=== PATIENT | female | born 1930 | race Caucasian/White ===

== ENCOUNTER 2019-10-08 20:48 | Emergency (ER) | payer MEDICARE, OTHER ==
[~2019-10-08] VITALS: Ht 157 cm; Wt 95.0 kg
--- OUTSIDE RECORDS SUMMARY | 2019-10-08 20:56 | XMS REPORT | Continuity of Care Document ---
Author Organization Unknown Address Unknown Phone Unavailable Allergies There is no data. Medications There is no data. Problems There is no data. Procedures There is no data. Results There is no data. Encounters ACCT No. Visit Date/Time Discharge Status Pt. Type Provider Facility Loc./Unit Complaint [id number] 01/07/2019 17:00:00 01/07/2019 23:59: 59 [facility]
[2019-10-08 22:01] LABS: BASOPHILS % (AUTO) 1 % (0-10); EOSINOPHILS # (AUTO) 0.2 10^3/uL (0.0-0.3); EOSINOPHILS % (AUTO) 4 % (0-10); HEMATOCRIT 35 % (35-52); LYMPHOCYTES # (AUTO) 1.1 X 10^3 (1.0-4.0); LYMPHOCYTES % (AUTO) 18 % (12-44); MEAN CORPUSCULAR HEMOGLOBIN 27 PG (25-34); MEAN CORPUSCULAR HGB CONC 31 G/DL (32-36); MEAN CORPUSCULAR VOLUME 88 FL (80-99); MEAN PLATELET VOLUME 9.5 FL (7.4-10.4); MONOCYTES # (AUTO) 0.7 X 10^3 (0.0-1.0); MONOCYTES % (AUTO) 11 % (0-12); NEUTROPHILS # (AUTO) 4.2 X 10^3 (1.8-7.8); NEUTROPHILS % (AUTO) 67 % (42-75); PLATELET COUNT 173 10^3/uL (130-400); RED CELL DISTRIBUTION WIDTH 15.6 % (10.0-14.5); WHITE BLOOD COUNT 6.2 10^3/uL (4.3-11.0)
[2019-10-08 22:05] LABS: BILIRUBIN,URINE NEGATIVE (NEGATIVE); CLARITY,URINE CLEAR; COLOR,URINE YELLOW; GLUCOSE, URINE (UA) NEGATIVE (NEGATIVE); KETONES,URINE NEGATIVE (NEGATIVE); LEUKOCYTE ESTERASE ,URINE NEGATIVE (NEGATIVE); NITRITE,URINE NEGATIVE (NEGATIVE); PH,URINE 5.5 (5-9); PROTEIN,URINE NEGATIVE (NEGATIVE)
--- NOTE | 2019-10-08 22:05 | ED EENT ---
History of Present Illness General Chief Complaint: Oral/Throat Problems Stated Complaint: FEVER,CHILLS,SOA,SORE THROAT Source: patient Exam Limitations: no limitations History of Present Illness Date Seen by Provider: October 08, 2019 Time Seen by Provider: 21:40 Initial Comments To ER with sore throat, painful swallowing, worsening of chronic shortness of breath, chills for about 3 days. Just arrived here from [place], troubles with her daughter who is a warehouse technician that works part-time traveling. Timing/Duration: abrupt Severity: moderate Location: throat Associated Symptoms: No cough; poor fluid intake, poor solids intake Allergies and Home Medications Allergies Coded Allergies: No Known Drug Allergies (Unverified , 10/08/19) Patient Home Medication List Home Medication List Reviewed: Yes Review of Systems Review of Systems Constitutional: see HPI, chills Eyes: No Symptoms Reported Ears: No Symptoms Reported Nose: no symptoms reported Mouth: no symptoms reported Throat: see HPI, pain Respiratory: see HPI, cough Cardiovascular: no symptoms reported Musculoskeletal: no symptoms reported Skin: no symptoms reported Neurological: No Symptoms Reported Hematologic/Lymphatic: No Symptoms Reported Immunological/Allergic: no symptoms reported Past Cxzmbyq-Ekzrqd-Fkidsz Hx Patient Social History Recent Foreign Travel: No Contact w/Someone Who Travel: No Physical Exam Height, Weight, BMI Height: '" Weight: lbs. oz. kg; BMI Method: General Appearance: WD/WN, no apparent distress Eyes: bilateral eye normal inspection, bilateral eye PERRL, bilateral eye EOMI Ears: bilateral ear auricle normal, bilateral ear canal normal, bilateral ear TM normal Mouth/Throat: normal mouth inspection, other (patient is unable to open her mouth sufficiently to evaluate the pharynx. She states "I don't have a hinge on the left side".) Neck: non-tender, full range of motion Respiratory: no respiratory distress, no accessory muscle use Gastrointestinal: normal bowel sounds, non tender Neurologic/Psychiatric: alert, normal mood/affect, oriented x 3 Skin: normal color, warm/dry Progress/Results/Core Measures Results/Orders Lab Results Laboratory Tests Test 10/08/19 19:25 10/08/19 19:26 10/08/19 21:40 Range/Units White Blood Count 6.2 4.3-11.0 10^3/uL Red Blood Count 4.01 L 4.35-5.85 10^6/uL Hemoglobin 11.0 L 11.5-16.0 G/DL Hematocrit 35 35-52 % Mean Corpuscular Volume 88 80-99 FL Mean Corpuscular Hemoglobin 27 25-34 PG Mean Corpuscular Hemoglobin Concent 31 L 32-36 G/DL Red Cell Distribution Width 15.6 H 10.0-14.5 % Platelet Count 173 130-400 10^3/uL Mean Platelet Volume 9.5 7.4-10.4 FL Neutrophils (%) (Auto) 67 42-75 % Lymphocytes (%) (Auto) 18 12-44 % Monocytes (%) (Auto) 11 0-12 % Eosinophils (%) (Auto) 4 0-10 % Basophils (%) (Auto) 1 0-10 % Neutrophils # (Auto) 4.2 1.8-7.8 X 10^3 Lymphocytes # (Auto) 1.1 1.0-4.0 X 10^3 Monocytes # (Auto) 0.7 0.0-1.0 X 10^3 Eosinophils # (Auto) 0.2 0.0-0.3 10^3/uL Basophils # (Auto) 0.0 0.0-0.1 10^3/uL Prothrombin Time 12.3 12.2-14.7 SEC INR Comment 0.9 0.8-1.4 D-Dimer 1.63 H 0.00-0.49 UG/ML Sodium Level 139 135-145 MMOL/L Potassium Level 4.1 3.6-5.0 MMOL/L Chloride Level 105 98-107 MMOL/L Carbon Dioxide Level 23 21-32 MMOL/L Anion Gap 11 5-14 MMOL/L Blood Urea Nitrogen 19 H 7-18 MG/DL Creatinine 1.15 0.60-1.30 MG/DL Estimat Glomerular Filtration Rate 45 BUN/Creatinine Ratio 17 Glucose Level 157 H 70-105 MG/DL Calcium Level 9.1 8.5-10.1 MG/DL Corrected Calcium 9.3 8.5-10.1 MG/DL Total Bilirubin 1.2 H 0.1-1.0 MG/DL Aspartate Amino Transf (AST/SGOT) 18 5-34 U/L Alanine Aminotransferase (ALT/SGPT) 16 0-55 U/L Alkaline Phosphatase 121 40-136 U/L C-Reactive Protein High Sensitivity 0.38 0.00-0.50 MG/DL B-Type Natriuretic Peptide 141.7 H <100.0 PG/ML Total Protein 6.4 6.4-8.2 GM/DL Albumin 3.8 3.2-4.5 GM/DL Procalcitonin 0.03 <0.10 NG/ML Group A Streptococcus Screen NEGATIVE NEGATIVE Urine Color YELLOW Urine Clarity CLEAR Urine pH 5.5 5-9 Urine Specific [place] 1.020 1.016-1.022 Urine Protein NEGATIVE NEGATIVE Urine Glucose (UA) NEGATIVE NEGATIVE Urine Ketones NEGATIVE NEGATIVE Urine Nitrite NEGATIVE NEGATIVE Urine Bilirubin NEGATIVE NEGATIVE Urine Urobilinogen 0.2 < = 1.0 MG/DL Urine Leukocyte Esterase NEGATIVE NEGATIVE Urine RBC (Auto) NEGATIVE NEGATIVE Urine RBC NONE /HPF Urine WBC RARE /HPF Urine Squamous Epithelial Cells RARE /HPF Urine Crystals NONE /LPF Urine Bacteria TRACE /HPF Urine Casts NONE /LPF Urine Mucus SMALL H /LPF Urine Culture Indicated NO Micro Results Microbiology 10/08/19 Influenza Types A,B Antigen (ARIANNE) - Final, Complete My Orders Orders - PAYTON MIRZA PRODUCT SAFETY SPECIALIST Cbc With Automated Diff (10/08/19 21:00) Comprehensive Metabolic Panel (10/08/19 21:00) BNP (10/08/19 21:00) Procalcitonin (Pct) (10/08/19 21:00) Protime With Inr (10/08/19 21:00) Chest 1 View, Ap/Pa Only (10/08/19 21:00) Influenza A And B Antigens (10/08/19 21:00) Coronavirus Sars-Cov-2 So 2018 (10/08/19 21:00) Hs C Reactive Protein (10/08/19 21:00) Fibrin Degradation Products (10/08/19 21:00) Ua Culture If Indicated (10/08/19 21:08) Rapid Strep A Screen (10/08/19 22:05) Ct Angio Chest W (10/08/19 22:19) Ns Iv 500 Ml (Sodium Chloride 0.9%) (10/08/19 22:30) Amoxicillin Capsule (Polymox Capsule) (10/08/19 22:41) Departure Communication (Admissions) --I discussed with her the potential worsening of kidney dysfunction with the IV contrast for a CT angiogram. The purpose of this would be to evaluate for pulmonary embolism. She states that she doesn't have chest pain. I advised her that she did complain of shortness of breath, she replies "oh yeah but I always have that". She would like to just get an x-ray and did not have the CT angiog benita done. She agrees to sign a refusal of services form understanding that I am unable to evaluate the presence or absence of pulmonary embolism. Impression Primary Impression: Pharyngitis Qualified Codes: J02.9 - Acute pharyngitis, unspecified Disposition: HOME, SELF-CARE Condition: Stable Departure-Patient Inst. Decision time for Depature: 22:38 Referrals: NO,LOCAL PHYSICIAN (PCP/Family) Primary Care Physician Patient Instructions: Sore Throat, Adult (DC) Add. Discharge Instructions: 1. The coronavirus swab should be resulted tomorrow afternoon or evening. Take the antibiotics and steroids as directed. Is Scripts Prednisone (Prednisone) 20 Mg Tab 40 MG PO DAILY, #6 TAB 0 Refills Prov: PAYTON MIRZA APRN 10/08/19 Amoxicillin (Amoxicillin) 500 Mg Capsule 500 MG PO TID, #21 CAP 0 Refills Prov: PAYTON MIRZA APRN 10/08/19 PAYTON MIRZA APRN October 08, 2019 22:05
[2019-10-08 22:09] LABS: ALBUMIN 3.8 GM/DL (3.2-4.5); POTASSIUM 4.1 MMOL/L (3.6-5.0)
[2019-10-08 22:10] LABS: CALCIUM 9.1 MG/DL (8.5-10.1)
[2019-10-08 22:11] LABS: TOTAL PROTEIN 6.4 GM/DL (6.4-8.2)
[2019-10-08 22:12] LABS: BACTERIA,URINE TRACE /HPF; SQUAMOUS EPITHELIAL CELL,UR RARE /HPF; WBC,URINE RARE /HPF
[2019-10-08 22:13] LABS: BILIRUBIN,TOTAL 1.2 MG/DL (0.1-1.0); FIBRIN DEGRADATION PRODUCTS 1.63 UG/ML (0.00-0.49); INR 0.9 (0.8-1.4); PROTHROMBIN TIME PATIENT 12.3 SEC (12.2-14.7)
[2019-10-08 22:15] LABS: CREATININE SERUM 1.15 MG/DL (0.60-1.30)
[2019-10-08] MEDS ORDERED: NS IV 500 ML 500 ML IV SCH (22:30)
--- NOTE | 2019-10-08 22:38 | NUR ---
PT REFUSED CT SCAN OF CHEST WITH CONTRAST AND REFUSAL OF TREATMENT FORM SIGNED.
[2019-10-08] MEDS ORDERED: AMOXICILLIN 500 MG (POLYMOX) CAP PO STA (22:41)
[2019-10-08] MEDS ORDERED: AMOX500C2 PO (22:44)
[2019-10-08] MEDS ORDERED: PRD20T PO (22:44)
--- NOTE | 2019-10-08 22:56 | NUR ---
[id number] SWAB COLLECTED BY Willa MIRZA APRN AND TAKEN TO LAB WITH COMPLETED KDHE FORM. KDHE FORM FRONT AND BACK FAXED TO [facility], ER NURSE CERTIFIED NURSE AIDE AND ALEX GIBBONS, INFECTION CONTROL. 2255- KDHE FORM FRONT AND BACK FAXED TO [facility].
[2019-10-08 23:10] VITALS: BP 150/83
--- NOTE | 2019-10-09 07:24 | Diagnostic Imaging Report ---
Indication: Dyspnea. Comparison: None. Discussion: Single portable upright view of the chest was obtained. Mild cardiomegaly is noted. Left-sided pacemaker is present. No pleural fluid or pneumothorax. Advanced degenerative disease noted within the shoulders. Mild alveolar infiltrates are present bilaterally, left greater than right, which is nonspecific and could be seen with atelectasis, pneumonia, or edema. No central venous congestion identified. Impression: 1. Mild nonspecific alveolar infiltrates. 2. Mild cardiomegaly. Dictated by: Dictated on workstation # [id number]
== END 2019-10-08 23:10 | disposition home or self-care (01) ==
LOC: ER 20:51
DX: J02.9 Acute pharyngitis, unspecified (principal)
CPT/HCPCS: 36415; 71045; 80053; 81000; 83880; 84145; 85025; 85379; 85610; 86141; 87430; 87635; 87804

== ENCOUNTER 2021-03-10 11:45 | Emergency (ER) | payer MEDICARE, OTHER ==
[~2021-03-10] VITALS: Ht 157 cm; Wt 90.7 kg
[~2021-03-10 11:45] MED LIST: AMOX500C2 PO; PRD20T PO
--- NOTE | 2021-03-10 13:01 | ED GI ---
General Chief Complaint: Abdominal/GI Problems Stated Complaint: CONSTIPATION Nursing Triage Note: Pt brought to ED by daughter for constipation x's 3 days. Per daughter pt has IBS and this happens often. Three fleet enemas have been attempted at home with minimal progress. Pt brought to FT 3 in . Source of Information: Patient Exam Limitations: No Limitations History of Present Illness Date Seen by Provider: Mar 10, 2021 Time Seen by Provider: 12:35 Initial Comments Patient presents ER by private conveyance with her daughter and chief complaint she is having obstipation passing only a few rabbit pellets for the past 3 days. She has a history of irritable bowel syndrome. She used 3 enemas today and took a single dose of MiraLAX. She is not on a daily bowel regimen. She has had 14 surgeries including appendicitis, tubes tied, D&Cs, ovarian resection, hysterectomy, pacemaker. She had a colonoscopy in 2008 demonstrating 4 polyps at that time and no repeat colonoscopy since then. Is not noticing any blood in the stool or black tarry stool. He is having a generalized abdominal discomfort in her umbilical region and pressure at the rectum. She says she has significant hemorrhoids. Allergies and Home Medications Allergies Coded Allergies: procaine (Verified Allergy, Unknown, 03/10/21) sulfamethoxazole (Verified Allergy, Unknown, 03/10/21) trimethoprim (Verified Allergy, Unknown, 03/10/21) Patient Home Medication List Home Medication List Reviewed: Yes Amoxicillin (Amoxicillin) 500 Mg Capsule, 500 MG PO TID Prescribed by: PAYTON MIRZA on 10/08/192243 Prednisone (Prednisone) 20 Mg Tab, 40 MG PO DAILY Prescribed by: PAYTON MIRZA on 10/08/192243 Review of Systems Review of Systems Constitutional: No chills, No diaphoresis EENTM: No Blurred Vision, No Double Vision Respiratory: Denies Cough, Denies Orthopnea, Denies Shortness of Air Cardiovascular: Denies Chest Pain, Denies Lightheadedness Gastrointestinal: See HPI; Denies Abdomen Distended; Abdominal Pain, Constipated; Denies Diarrhea, Denies Nausea; Poor Fluid Intake Genitourinary: Denies Burning, Denies Discharge Musculoskeletal: No back pain, No joint pain Psychiatric/Neurological: Anxiety, Depressed All Other Systems Reviewed Negative Unless Noted: Yes Past Gtfbtii-Xmfcjy-Fowirh Hx Patient Social History Tobacco Use?: No Substance use?: No Alcohol Use?: No Pt feels they are or have been: No Immunizations Up To Date First/Initial COVID19 Vaccinat: 01/02/21 Second COVID19 Vaccination Layo: 02/02/21 COVID19 Vaccine [employer] Department Supervisor: Matt Seasonal Allergies Seasonal Allergies: No Past Medical History Surgery/Hospitalization HX: Last hospt. 05/2020 in [place] for UTI. Surgeries: Yes Appendectomy, Gallbladder, Orthopedic, Pacemaker, Tonsillectomy Respiratory: No Cardiac: Yes (PACEMAKER) Deep Vein Thrombosis, High Cholesterol, Hypertension Genitourinary: Yes UTI-Chronic Gastrointestinal: Yes Gastroesophageal Reflux Musculoskeletal: Yes Gout Integumentary: No Physical Exam Vital Signs Vital Signs - First Documented 03/10/21 12:02 Temp 35.8 Pulse 86 Resp 20 B/P (MAP) 115/75 (88) Pulse Ox 98 O2 Delivery Room Air Capillary Refill : Less Than 3 Seconds Height/Weight/BMI Height: '" Weight: lbs. oz. kg; 36.00 BMI Method: General Appearance: WD/WN, no apparent distress HEENT: PERRL/EOMI; No pharynx normal (Oral mucosa is dry) Respiratory: lungs clear, normal breath sounds, no respiratory distress, no accessory muscle use Cardiovascular: normal peripheral pulses, regular rate, rhythm Peripheral Pulses: 2+ Radial Pulses (R), 2+ Radial Pulses (L) Gastrointestinal: normal bowel sounds, soft, tenderness (Mild tenderness generally but no significant mesenteric signs, psoas sign, Rosen sign) Extremities: normal range of motion, non-tender, normal capillary refill Neurologic/Psychiatric: alert, normal mood/affect, oriented x 3, other (Significantly hard of hearing) Skin: normal color, warm/dry Procedures/Interventions Progress Fecal disimpaction, digital with fleets enema. Using copious K-Y jelly we were able to break up a large stool ball in her rectum and passed about 250 cc of hard stool. We then placed a adult fleets enema in her rectum and after about 5 to 10 minutes put her on the commode where she produced a small amount of liquid stool. She is ready to go home. Progress/Results/Core Measures Results/Orders Lab Results Laboratory Tests Test 03/10/21 15:20 Range/Units Glucometer 118 H 70-110 MG/DL My Orders Orders - ANDREW CROWDER Ct Abdomen/Pelvis Wo (03/10/21 12:54) Diatrizoate Meglum/Sodium 37% (Gastrogra (03/10/21 13:30) Na Phos/Na Biphos Enema (Fleet Enema Hermilo (03/10/21 15:15) Accucheck Stat ONCE (03/10/21 15:18) Medications Given in ED Current Medications Medications Dose Ordered Sig/Jeffry Route Start Time Stop Time Status Last Admin Dose Admin Diatrizoate Meglum/ Diatrizoate Sod 120 ml ONCE ONCE PO 03/10/21 13:30 03/10/21 13:31 DC 03/10/21 13:30 30 ML Vital Signs/I&O 03/10/21 03/10/21 12:02 12:02 Temp 35.8 35.8 Pulse 86 86 Resp 20 B/P (MAP) 115/75 (88) 115/75 Pulse Ox 98 O2 Delivery Room Air Room Air Blood Pressure Mean: 88 Progress Progress Note #1: Time: 12:59 Progress Note Her daughter states that she feels she is probably dehydrated but the patient is adamant she does not want an IV. She says she has been a tough stick in the past and she does not like being poked a lot. She claims she is eating and drinking enough but her daughter states otherwise stating that she typically runs on the dehydrated side. Would like to get a CT with oral contrast which will be diagnostic as well as therapeutic for obstipation versus bowel obstruction. Given her history of colonic polyps 12 years ago it would be joyner to rule out a obstruction. She could also have internal herniation or adhesions given the amount of surgery she has had on her belly in the past. She is not requiring anything for pain right now. Her vitals are stable. No mesenteric signs. Progress Note #2: Time: 13:34 Progress Note Patient received 2 attempts at drawing blood and declined any further attempts stating she does not feel is necessary at this time Diagnostic Imaging Diagonstic Imaging: CT Plain Films/CT/US/NM/MRI: abdomen, pelvis Comments [facility] [place], [place] NAME: CELY SCHILLINGWalt Yan MED REC#: [id number] PT STATUS: REG ER : 1930 PHYSICIAN: ANDREW CROWDER MD ADMIT DATE: 03/10/21/ER Draft Date of Exam:03/10/21 CT ABDOMEN/PELVIS WO PROCEDURE: CT abdomen and pelvis without contrast. TECHNIQUE: Multiple contiguous axial images were obtained through the abdomen and pelvis without the use of intravenous contrast. Auto Exposure Controls were utilized during the CT exam to meet ALARA standards for radiation dose reduction. INDICATION: Constipation, obstipation COMPARISON: None available FINDINGS: Pacer leads are partially visualized. The visualized lung bases are clear of focal pulmonary opacity. Mitral valve annular calcifications. Cholecystectomy. The unenhanced liver and spleen are unremarkable. The adrenal glands are unremarkable. The unenhanced pancreas is unremarkable. Prominence of the right renal pelvis without right-sided hydronephrosis. The mid and distal right ureter are unremarkable. 7 mm mild hyperdensity is noted associated with the mid left kidney. No hydroureteronephrosis. Moderate vascular calcifications within the abdominal aorta and its branch vessels without aneurysmal dilatation of the abdominal aorta. The visualized portion of the appendix are unremarkable. The urinary bladder is unremarkable. The uterus is not well visualized, either atrophic or surgically absent. No abnormal adnexal mass lesion. Moderate stool ball is identified within the rectal vault. Mural thickening of the rectum is noted with adjacent perirectal inflammatory stranding. No bowel obstruction or pneumatosis. No significant adenopathy, free air, or free fluid within the abdomen or pelvis. 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 This is associated with chronic appearing contour deformity of the proximal right femur and right acetabulum. Ankylosis of L2-L4 is present. Advanced scattered degenerative changes are present within osseous structures with multilevel high-grade central canal stenosis throughout the majority of the lumbar spine. No acute fracture. IMPRESSION: Moderate stool ball within the rectal vault. Given mural thickening and adjacent inflammatory changes of the rectum, this may be associated with superimposed proctitis or evidence stercoral colitis. Severe degenerative changes within osseous structures with multilevel high-grade central canal and neural foraminal stenosis within the lumbar spine. Subcentimeter hyperdensity within the left kidney. This is too small to completely characterize on this examination. This may simply relate to proteinaceous cyst, though mass lesions not completely excluded. A followup CT of the abdomen in one year is recommended to reevaluate. Severe degenerative changes with associated abnormal configuration of the right hip. Right extrarenal pelvis. Dictated on workstation # [id number] Dict: 03/10/21 1445 Trans: 03/10/21 1458 [facility] [id number] Interpreted by: ARTURO GODINEZ MD Electronically signed by: Reviewed: Reviewed by Me Departure Impression Primary Impression: Fecal impaction in rectum Disposition: 01 HOME, SELF-CARE Condition: Stable Departure-Patient Inst. Decision time for Depature: 15:43 Referrals: NO,LOCAL PHYSICIAN (PCP/Family) Primary Care Physician Patient Instructions: Fecal Impaction (DC) Add. Discharge Instructions: Continue enemas once or twice a day until stool has completely passed. MiraLAX 1 capful in 6 ounces of fluid 3-4 times a day until you have good results. Zofran 1 tablet every 6 hours under the tongue as necessary for nausea or vomiting. It is okay to continue using fiber until you become impacted again and then you should switch to just MiraLAX. I recommend MiraLAX at least once a day to help stay regular. MiraLAX will not allow the water you drink with it to absorb and will thus not contribute to fluid overload and therefore heart failure. All discharge instructions reviewed with patient and/or family. Voiced understanding. Scripts Ondansetron (Ondansetron Odt) 4 Mg Tab.rapdis 4 MG PO Q6H PRN for NAUSEA/VOMITING, #8 TAB 0 Refills Prov: ANDREW CROWDER 03/10/21 ANDREW CROWDER Mar 10, 2021 13:01
[2021-03-10] MEDS ORDERED: DIATRIZOATE MEGLUM/SODIUM 37% 120 ML (GASTROGRAFIN) PO ONE (13:30)
--- NOTE | 2021-03-10 14:59 | Diagnostic Imaging Report ---
PROCEDURE: CT abdomen and pelvis without contrast. TECHNIQUE: Multiple contiguous axial images were obtained through the abdomen and pelvis without the use of intravenous contrast. Auto Exposure Controls were utilized during the CT exam to meet ALARA standards for radiation dose reduction. INDICATION: Constipation, obstipation COMPARISON: None available FINDINGS: Pacer leads are partially visualized. The visualized lung bases are clear of focal pulmonary opacity. Mitral valve annular calcifications. Cholecystectomy. The unenhanced liver and spleen are unremarkable. The adrenal glands are unremarkable. The unenhanced pancreas is unremarkable. Prominence of the right renal pelvis without right-sided hydronephrosis. The mid and distal right ureter are unremarkable. 7 mm mild hyperdensity is noted associated with the mid left kidney. No hydroureteronephrosis. Moderate vascular calcifications within the abdominal aorta and its branch vessels without aneurysmal dilatation of the abdominal aorta. The visualized portion of the appendix are unremarkable. The urinary bladder is unremarkable. The uterus is not well visualized, either atrophic or surgically absent. No abnormal adnexal mass lesion. Moderate stool ball is identified within the rectal vault. Mural thickening of the rectum is noted with adjacent perirectal inflammatory stranding. No bowel obstruction or pneumatosis. No significant adenopathy, free air, or free fluid within the abdomen or pelvis. 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 This is associated with chronic appearing contour deformity of the proximal right femur and right acetabulum. Ankylosis of L2-L4 is present. Advanced scattered degenerative changes are present within osseous structures with multilevel high-grade central canal stenosis throughout the majority of the lumbar spine. No acute fracture. IMPRESSION: Moderate stool ball within the rectal vault. Given mural thickening and adjacent inflammatory changes of the rectum, this may be associated with superimposed proctitis or evidence stercoral colitis. Severe degenerative changes within osseous structures with multilevel high-grade central canal and neural foraminal stenosis within the lumbar spine. Subcentimeter hyperdensity within the left kidney. This is too small to completely characterize on this examination. This may simply relate to proteinaceous cyst, though mass lesions not completely excluded. A followup CT of the abdomen in one year is recommended to reevaluate. Severe degenerative changes with associated abnormal configuration of the right hip. Right extrarenal pelvis. Dictated by: Dictated on workstation # [id number]
[2021-03-10] MEDS ORDERED: FLEET ENEMA ADULT 1 EA BTL PR ONE (15:15)
[2021-03-10] MEDS ORDERED: ONDA4TAB11 PO (15:46)
[2021-03-10 16:00] VITALS: BP 120/64
== END 2021-03-10 16:00 | disposition home or self-care (01) ==
LOC: EDUNIT# 11:45 → ER 11:47
DX: K56.41 Fecal impaction (principal); I10 Essential (primary) hypertension; Z79.52 Long term (current) use of systemic steroids
CPT/HCPCS: 74176; 82947